=== PATIENT | male | born 1990 | race Caucasian/White ===

== ENCOUNTER 2016-12-26 12:37 | Emergency (ER) | payer BC ==
[~2016-12-26] VITALS: Ht 182.9 cm; Wt 62.2 kg
[2016-12-26] MEDS ORDERED: METOCLOPRAMIDE 5 MG/ML, 2ML IVPush ONE (13:30)
[2016-12-26] MEDS ORDERED: SODIUM CHLORIDE 0.9% 1,000ML IVBOLUS ONE (13:30)
[2016-12-26] MEDS ORDERED: SODIUM CHLORIDE FLUSH 10ML SYR IVF ONE (13:30)
[2016-12-26] MEDS ORDERED: DIPHENHYDRAMINE 50 MG/ML, 1ML IVPush ONE (13:30)
[2016-12-26] MEDS ORDERED: METOCLOPRAMIDE 5 MG/ML, 2ML ONE (14:01)
[2016-12-26] MEDS ORDERED: DIPHENHYDRAMINE 50 MG/ML, 1ML ONE (14:01)
[2016-12-26] MEDS ORDERED: ONDANSETRON 2MG/ML, 2ML ONE (14:09)
[2016-12-26] MEDS ORDERED: ONDANSETRON 2MG/ML, 2ML IVPush ONE (14:30)
[2016-12-26] MEDS ORDERED: KETOROLAC 30 MG/1 ML IVPush ONE (14:30)
[2016-12-26 15:42] VITALS: BP 102/63
== END 2016-12-26 15:45 | disposition home or self-care (01) ==
LOC: ED 14:12
DX: R51 Headache (principal)
CPT/HCPCS: 70450; 96361; 96374; 96375; 99284; J1200; J2765; J7030

== ENCOUNTER 2019-03-05 14:02 | Emergency (ER) | payer OTHER ==
[~2019-03-05] VITALS: Ht 180.3 cm; Wt 74.0 kg
[2019-03-05 14:53] VITALS: BP 119/82
--- NOTE | 2019-03-05 15:49 | NUR ---
ROSHNI WRAP APPLIED. CMS REMAINS INTACT REVIEWED R.I.C.E INSTRUCTED, HOW TO USE ELASTRIC WRAP & HOW TO F/U WITH ORTHOPEDICS IF SYMPTOMS DO NOT IMPROVE
== END 2019-03-05 15:53 | disposition home or self-care (01) ==
LOC: ED 15:42
DX: S93.491A Sprain of other ligament of right ankle, initial encounter (principal); X58.XXXA Exposure to other specified factors, initial encounter; Y93.89 Activity, other specified; Y92.89 Other specified places as the place of occurrence of the external cause; Y99.8 Other external cause status
CPT/HCPCS: 99283

== ENCOUNTER → 2019-11-05 | Outpatient (CLI) | payer OTHER ==
[~2019-11-05] MED LIST: OMNIPAQUE 350 MG/ML, 100ML BOTTLE ONE
== END | disposition home or self-care (01) ==
LOC: CFH 11:44
PROVIDERS: ATTEND Family Medicine
DX: K76.0 Fatty (change of) liver, not elsewhere classified (principal)
CPT/HCPCS: 74160; Q9967

== ENCOUNTER → 2020-02-23 | Outpatient (CLI) | payer OTHER | END | disposition home or self-care (01) | LOC: CFH 09:07 | PROVIDERS: ATTEND Internal Medicine Hematology & Oncology | DX: R05 Cough (principal) | CPT/HCPCS: 71046 ==